=== PATIENT | male | born 1990 | race African-American/Black ===

== ENCOUNTER 2022-05-30 20:19 | Emergency (ER) | payer SELFPAY ==
[~2022-05-30] VITALS: Ht 175.3 cm; Wt 77.1 kg
[2022-05-30 21:00] VITALS: BP 131/77
== END 2022-05-31 04:46 | disposition home or self-care (01) ==
LOC: ER 20:31
DX: T50.901A Poisoning by unspecified drugs, medicaments and biological substances, accidental (unintentional), initial encounter (principal); Z60.2 Problems related to living alone; Y92.89 Other specified places as the place of occurrence of the external cause